=== PATIENT | female | born 1970 | race Caucasian/White ===

== ENCOUNTER 2016-08-22 19:15 | Emergency (ER) | payer OTHER ==
[~2016-08-22] VITALS: Ht 170.2 cm; Wt 73.9 kg
[2016-08-22 22:08] LABS: PLATELET COUNT 189 x10^3mcL (130-400)
[2016-08-22 22:13] LABS: CALCIUM 9.1 mg/dL (8.5-10.1); CARBON DIOXIDE 27.3 mmol/L (21-32); CHLORIDE SERUM 101 mmol/L (98-107); CREATININE SERUM 0.7 mg/dL (0.6-1.0); GFR1 > 60 mL/min; GLUCOSE SERUM 133 mg/dL (74-106); POTASSIUM SERUM 4.4 mmol/L (3.5-5.1); SODIUM SERUM 138 mmol/L (136-145)
[2016-08-22 22:15] LABS: RED CELL DISTRIBUTION WIDTH 15.2 % (11.5-14.5)
[2016-08-22 22:34] LABS: MONOCYTE 6 % (0-7); SEGMENTED NEUTROPHILS 45 % (37-75)
[2016-08-22 22:36] LABS: BAND NEUTROPHIL 7 % (0-10); BASOPHIL 0 % (0-2)
[2016-08-22 22:38] LABS: rbc morphology (normal/abnorm) ABNORMAL (NORMAL)
[2016-08-22 23:10] VITALS: BP 106/69
== END 2016-08-22 23:10 | disposition home or self-care (01) ==
LOC: ED 19:15
PROVIDERS: Emergency Medicine
DX: B34.9 Viral infection, unspecified (principal); N12 Tubulo-interstitial nephritis, not specified as acute or chronic; D69.1 Qualitative platelet defects; D72.819 Decreased white blood cell count, unspecified
CPT/HCPCS: J0696; J1100

== ENCOUNTER 2020-08-04 01:38 | Emergency (ER) | payer OTHER ==
[~2020-08-04] VITALS: Ht 162.6 cm; Wt 80.3 kg
[2020-08-04 01:49] VITALS: Ht 162.6 cm; Wt 80.3 kg
[2020-08-04 02:59] LABS: microscopic required? YES; urine erythrocyte TRACE (NEGATIVE)
[2020-08-04 03:35] LABS: BASOPHIL % 0.2 % (0.2-1.3); PLATELET COUNT 214 x10^3mcL (179-408)
[2020-08-04 04:20] LABS: CALCIUM 8.4 mg/dL (8.5-10.1); CARBON DIOXIDE 23.3 mmol/L (21-32); CHLORIDE SERUM 103 mmol/L (98-107); CREATININE SERUM 0.8 mg/dL (0.6-1.0); GFR1 > 60 mL/min; GLUCOSE SERUM 117 mg/dL (74-106); SODIUM SERUM 135 mmol/L (136-145)
[2020-08-04 04:25] LABS: ALKALINE PHOSPHATASE 87 U/L (46-116); ALT/SGPT 39 U/L (14-59); AST/SGOT 19 U/L (15-37); BILIRUBIN TOTAL 0.35 mg/dL (0.20-1.00); LIPASE 91 IU/L (73-393); TOTAL PROTEIN, SERUM 6.9 g/dL (6.4-8.2)
[2020-08-04 04:26] LABS: ALBUMIN 3.3 g/dL (3.4-5.0)
[2020-08-04] MEDS ORDERED: MORGIDOX 1X100100 MG PO ×2 (06:56)
[2020-08-04] MEDS ORDERED: HYDROCODONE BIT1 T51 PO (06:56)
[2020-08-04] MEDS ORDERED: FLAGYL500 MG PO (06:56)
[2020-08-04 07:21] VITALS: BP 125/74
[2020-08-04] MEDS ORDERED: EXCEDRIN EXTRA1 EACH PO (19:21)
== END 2020-08-04 07:21 | disposition home or self-care (01) ==
LOC: ED 01:38
PROVIDERS: Emergency Medicine
CPT/HCPCS: J0696; J1885; J2270; Q9967

== ENCOUNTER 2020-08-04 12:36 | Inpatient (IN) | payer OTHER ==
[~2020-08-04] VITALS: Ht 165.1 cm; Wt 80.3 kg
[~2020-08-04 12:36] MED LIST: FLAGYL500 MG PO; HYDROCODONE BIT1 T51 PO; MORGIDOX 1X100100 MG PO
--- NOTE | 2020-08-04 14:55 | NUR ---
PT BIB SELF C/C ABD PAIN X 2 DAYS STS WAS HERE THIS AM DID NOT FILL RX STS STILL IN PAIN SAW BY DR SOLANO
[2020-08-04 15:29] LABS: BASOPHIL % 0.2 % (0.2-1.3); PLATELET COUNT 253 x10^3mcL (179-408); RED CELL DISTRIBUTION WIDTH 14.4 % (12.3-17.7)
[2020-08-04 15:31] LABS: CALCIUM 9.6 mg/dL (8.5-10.1); CARBON DIOXIDE 25.8 mmol/L (21-32); CHLORIDE SERUM 99 mmol/L (98-107); CREATININE SERUM 0.7 mg/dL (0.6-1.0); GFR1 > 60 mL/min; GLUCOSE SERUM 97 mg/dL (74-106); POTASSIUM SERUM 3.3 mmol/L (3.5-5.1); SODIUM SERUM 135 mmol/L (136-145)
[2020-08-04 15:36] LABS: ALBUMIN 3.9 g/dL (3.4-5.0); ALKALINE PHOSPHATASE 100 U/L (46-116); ALT/SGPT 41 U/L (14-59); AST/SGOT 21 U/L (15-37); BILIRUBIN TOTAL 0.4 mg/dL (0.20-1.00); LIPASE 73 IU/L (73-393)
[2020-08-04 15:38] LABS: TOTAL PROTEIN, SERUM 8.4 g/dL (6.4-8.2)
[2020-08-04 16:17] LABS: microscopic required? NO
[2020-08-04 16:30] LABS: UA SPECIFIC GRAVITY <=1.005 (1.005-1.035); urine erythrocyte NEGATIVE (NEGATIVE)
--- NOTE | 2020-08-04 16:40 | NUR ---
MEDICATED FOR PAIN
--- NOTE | 2020-08-04 18:40 | NUR ---
STARTED ON IV ATB
--- NOTE | 2020-08-04 18:58 | NUR ---
PLEASE ENTER FULL NAMES OF OUTPATIENT INTERVIEWING CLERK/RN Patient data collected by (OUTPATIENT INTERVIEWING CLERK):DINAH HARRIS, OUTPATIENT INTERVIEWING CLERK Assessment reviewed and completed by (RN):MARCIAL DAWSON RN
--- NOTE | 2020-08-04 19:17 | NUR ---
RECEIVED REPROT FORM DINAH OPHTHALMIC TECHNICIAN, I WILL ASSUME CARE OF PT AT THIS TIME. PT IS IN BED AWAKE AND AAOX4, NAD NOTED. MEDICAL STUDENT OCTAVIO AT BEDSIDE FOR ASSESSMENT. PT ON CM, VSS. MEDICATED PT PER ORDERS, SEE EMAR FOR DETAILS. CALL LIGHT WITHIN REACH, WILL CONTINUE TO MONITOR PT.
[2020-08-04] MEDS ORDERED: EXCEDRIN EXTRA1 EACH PO (19:21)
[2020-08-04 19:43] LABS: CHOLESTEROL/HDL RATIO 2.9
--- NOTE | 2020-08-04 19:47 | NUR ---
REPORT GIVEN TO RAFI COOLEY AND MICKEY COOLEY WHO WILL ASSUME CARE OF PT AT THIS TIME.
--- NOTE | 2020-08-04 19:48 | NUR ---
PT AMBULATED TO AND FROM RESTROOM WITH STEADY GAIT.
--- NOTE | 2020-08-04 22:19 | NUR ---
REPORT GIVEN TO YASIR DECKER TO ASSUME CARE OF PT.
--- NOTE | 2020-08-04 22:30 | NUR ---
PT BROUGHT UP FROM ED. PT A&OX4, RESTING IN BED. ABLE TO AMBULATE, BRP. BREATHING E/U ON ROOM AIR. NO PAIN AT THIS TIME. PT IV FLUIDS INFUSING WELL. PT WAS GIVEN PM MEDS AND SNACKS. PT HAS NO CONCERNS AT THIS TIME. CALL LIGHT IN REACH, WILL CONTINUE TO MONITOR.
--- NOTE | 2020-08-04 22:32 | NUR ---
PT TRANSFERRED TO MED/SURG 234B VIA WHEELCHAIR. PT A&OX4,NO ACUTE DSITRESS NOTED, RESP EVEN AND UNLABORED, TRANSFERRED WITHOUT INCIDENCE.
[2020-08-04 22:46] VITALS: BP 127/60
--- NOTE | 2020-08-05 03:11 | NUR ---
PT IN BED SLEEPING, PT STABLE AT THIS TIME. CALL LIGHT IN REACH WILL CONTINUE TO MONITOR. IVF INFUSING WELL.
[2020-08-05 05:31] VITALS: BP 123/75
[2020-08-05 06:27] LABS: CALCIUM 8.5 mg/dL (8.5-10.1); CARBON DIOXIDE 22.2 mmol/L (21-32); CHLORIDE SERUM 104 mmol/L (98-107); CREATININE SERUM 0.7 mg/dL (0.6-1.0); GFR1 > 60 mL/min; GLUCOSE SERUM 98 mg/dL (74-106); MAGNESIUM 1.8 mg/dL (1.8-2.4); PHOSPHOROUS 3.1 mg/dL (2.5-4.9); POTASSIUM SERUM 3.6 mmol/L (3.5-5.1); SODIUM SERUM 138 mmol/L (136-145)
--- NOTE | 2020-08-05 06:37 | NUR ---
PT REMAINED STABLE THROUGHOUT THE NIGHT. PT IN BED RESTING, IVF INFUSING WELL. PT HAS NO CONCERNS AT THIS TIME. PAIN HAS BEEN CONTROLLED VIA EMAR. PT REMAINS ON ROOM AIR TOLERATING WELL. ALL NEEDS WERE MET DURING THIS SHIFT. CALL LIGHT IS IN REACH, WILL CONTINUE TO MONITOR. WILL ENDORSE ALL CARE TO AM RN.
[2020-08-05 07:01] LABS: BASOPHIL % 0.2 % (0.2-1.3); PLATELET COUNT 233 x10^3mcL (179-408); RED CELL DISTRIBUTION WIDTH 14.3 % (12.3-17.7)
--- NOTE | 2020-08-05 07:30 | NUR ---
RECEIVED REPORT FROM SWING SAW OPERATOR NURSE. PATIENT AAOX4, GETTING UP TO AMBULATE TO BATHROOM. 20G IV TO RAC WNL, PATIENT IS MEDSURG/NO TELE, ON RA AND STANDARD PRECAUTIONS. BED IN LOW POSITION, X2 SIDERAILS UP AND CALL LIGHT IN REACH. PATIENT DENIES PAIN OR DISCOMFORT AT THIS TIME.
[2020-08-05 08:23] VITALS: BP 123/75
--- NOTE | 2020-08-05 09:10 | NUR ---
PATIENT REPORTS PAIN 7/10 AT THIS TIME IN LLQ. PRN PO NORCO ADMINISTERED. WILL CONTINUE TO MONITOR
--- NOTE | 2020-08-05 10:10 | NUR ---
PATIENT REASESSED AND REPORTS PAIN IS NOW 2/10 AND TOLERABLE.
--- NOTE | 2020-08-05 11:25 | NUR ---
PATIENT REPORTS PAIN 7/10 IN LLQ AT THIS TIME. IVP MORPHINE 2MG ADMINISTERED PER PRN PAIN ORDERS.
[2020-08-05 11:36] VITALS: BP 135/81
--- NOTE | 2020-08-05 11:56 | NUR ---
PATIENT REASESSED FOR PAIN. PATIENT REPORTS PAIN IS NOW DECREASED TO 2/10 AND IS TOLERABLE AT THIS TIME.
--- NOTE | 2020-08-05 13:59 | NUR ---
PATIENT ASSESSED REGARDING PAIN. PATIENT RESTING WITH EYES CLOSED AT THIS TIME. WOKE PATIENT UP AND SHE REPORTED PAIN IS NOW 2/10 AND TOLERABLE. PATIENT CLOSED EYES AND WENT BACK TO SLEEP
--- NOTE | 2020-08-05 14:47 | NUR ---
PATIENT REPORTS HEADACHE 7/10 AND NAUSEA AT THIS TIME AND WOULD LIKE PAIN MEDICATION. MORPHINE ORDERS SHOW Q3HRS, MORPHINE AND ZOFRAN IVP ADMINISTERED PER ORDERS
[2020-08-05 16:54] VITALS: BP 130/79
--- NOTE | 2020-08-05 17:50 | NUR ---
PATIENT REPORTS HEADACHE PAIN 10/10 AT THIS TIME AND STATES THAT THE TYLENOL SHE RECEIVED EARLIER DID NOT HELP MUCH. PATIENT REQUESTING STRONGER MEDICATION. PRN NORCO PO ADMINISTERED. WILL CONTINUE TO MONITOR FOR DECREASE IN PAIN. AT THIS TIME PATIENT DENIES NAUSEA AND ABDOMINAL PAIN
--- NOTE | 2020-08-05 18:13 | NUR ---
PATIENT SITTING UP IN BED, EATING DINNER. REPORTS HEADACHE PAIN SLOWLY SUBSIDING AND IS NOW A 5/10. X2 SIDERAILS UP, HOB ELEVATED 90 DEGREES, BED IN LOW POSITION AND CALL LIGHT IN REACH
--- NOTE | 2020-08-05 18:47 | NUR ---
PATIENET ASSESSED FOR PAIN AGAIN AND NOW REPORTS HEADACHE 0/10. RESTING IN BED AND STATES SHE IS "TRYING TO GET SOME SLEEP." SIDE RAILS UP X2, BED IN LOW POSITION AND CALL LIGHT IN REACH. OVERHEAD LIGHT STILL ON AT THIS TIME.
--- NOTE | 2020-08-05 19:09 | NUR ---
ALL PATIENT QUESTIONS AND CONCERNS ADDRESSED. REPORT GIVEN TO TILE TRIMMER NURSE. ALL CARES ENDORSED
--- NOTE | 2020-08-05 19:20 | NUR ---
RECEIVED PATIENT FROM AM RN. PT AA&OX4, DENIES CHEST PAIN OR DISCOMFORT AT THIS TIME. DENIES SOB,DENIES N/V, ON MEDICAL SURGICAL STATUS MONITOR.PT DID C/O OF ABDOMINAL DISCOMFORT, BUT REFUSED FOR PAIN MEDICATION FOR THIS TIME. ENCOURAGED TO CHANGE POSITION TO BETTER COMFORT.IV SITE ON RIGHT AC INTACT ADN RUNNING WITH NS 100ML/HOUR. SAFETY PRECAUTION IN PLACE, CALL LIGHT WITHIN REACH. WILL CONTINUE TO MONITOR PT.
[2020-08-05 20:34] VITALS: BP 124/69
--- NOTE | 2020-08-06 01:39 | NUR ---
APPLIED SCD ON BILATERAL LOWER EXTREMITIES. EDUCATED PT HOW TO DISCONNECT THEM WHEN NEED TOAMBULATE TO RESTROOM. PT VERBALLY UNDERSTOOD.
[2020-08-06 05:16] VITALS: BP 113/66
--- NOTE | 2020-08-06 05:42 | NUR ---
PATIENT C/O ABDOMINAL PAIN WITH 12/12. MEDICATED WITH NORCO,1 TAB 7.5/325MG, PO ORDERED FOR PAIN. WILL REASSESS AND MONITOR PT.
[2020-08-06 06:23] LABS: BASOPHIL % 0.3 % (0.2-1.3); PLATELET COUNT 275 x10^3mcL (179-408); RED CELL DISTRIBUTION WIDTH 14.3 % (12.3-17.7)
[2020-08-06 06:36] LABS: CALCIUM 8.8 mg/dL (8.5-10.1); CARBON DIOXIDE 23.8 mmol/L (21-32); CHLORIDE SERUM 105 mmol/L (98-107); CREATININE SERUM 0.7 mg/dL (0.6-1.0); GFR1 > 60 mL/min; GLUCOSE SERUM 107 mg/dL (74-106); MAGNESIUM 1.8 mg/dL (1.8-2.4); PHOSPHOROUS 3.7 mg/dL (2.5-4.9); POTASSIUM SERUM 3.9 mmol/L (3.5-5.1); SODIUM SERUM 139 mmol/L (136-145)
--- NOTE | 2020-08-06 06:50 | NUR ---
PATIENT RESTED WELL DURING SHIFT. DENIES CHEST PAIN OR CHEST DISCOMFORT, DENIES SOB, DENIES N/V. NORCO WAS GIVEN AT 0540 FOR ABDOMINAL PAIN , BUT PT STATES SHE FEEL MUCH BETTER. PT CONDITION IS STABLE FOR THIS TIME. IV RUNNING WITH NS 100ML/HR, NO REDNESS OR SWELLING NOTED. SAFETY PRECAUTIONS IN PLACE. CALL LIGHT WITHIN REACH. WILL CONTINUE TO MONITOR PT UNTIL GIVE REPORT AND ENDORSE CARE TO AM RN.
--- NOTE | 2020-08-06 07:04 | NUR ---
RECEIVED PHOEN CALL FROM PT'S MEGHANN JERNIGAN. SHE WAS WORRIED ABOUT PATIENT [facility] AND WANTED TO KNOW WHEN THE OBGYN DOCTOR CAME TO CHECK ON HER. WILL FOLLOW IT UP WITH AM RN.
--- NOTE | 2020-08-06 07:10 | NUR ---
RECEIVED PT FROM NIGHT. PT IS AAOX4. PT MED-SURG STATUS. PT DENIES CHEST PAIN. PT IV TO RAC 20G. NS RUNNING @100 CC/HR. ALL COMFRT AND SAFETY MEASURES IN PLACE. BED IN LOW POSITION. 2 SIDE RAILS UP. CALL LIGHT WITH IN REACH. ALL QUESTIONS AND CONCERS ADDRESSED.
--- NOTE | 2020-08-06 07:43 | NUR ---
REPORT GAVE AND ENDORSED ALL CARE TO AM YASIR MATOS.
[2020-08-06 08:30] VITALS: BP 129/80
--- NOTE | 2020-08-06 10:43 | NUR ---
KEELY GAN MADE AWARE OF PT C/O CONSTIPATION AND H/A. KEELY GAN GAVE TELEPHONE READBACK ORDER FOR DULCOLAX SUPPOSATORY 10MG. TORADOL 15MG IV ONCE. ORDER CONFIRMED AND READBACK. ALL QUESTIONS AND CONCERNS ADDRESSED.
[2020-08-06 11:22] VITALS: BP 124/83
--- NOTE | 2020-08-06 15:30 | NUR ---
IN TO SEE PT. PT REMAINS STABLE AT THIS TIME. PT DENIES PAIN. PT STATING SHE HAD A SMALL BM. ALL QUESTIONS AND CONCERNS ADDRESSED. ALL COMFORT AND SAFETY MEASURES IN PLACE.
[2020-08-06 15:45] VITALS: BP 120/73
--- NOTE | 2020-08-06 19:10 | NUR ---
RECEIVED PATIENT FROM AM RN CARLO. PT AA&OX4, DENEIS CHEST PAIN OF CHEST DISCOMFORT, DENIES SOB OR RESPIRATORY DISTRESS. PT C/O N/V AND LITTLE ABDOMINAL DISCOMFORT AT THIS TIME. ABDOMEN SOFT, ROUND AND NONTENDER. IV SITE ON RIGHT AC INTACT AND RUNNING WITH NS 100ML/HR WELL, NO REDNESS OR SWELLING NOTED. CALL LIGHT WITHIN REACH, SAFETY PRECAUTIONS IN PLACE. WILL CONTINUE TO MONITOR PT.
--- NOTE | 2020-08-06 19:12 | NUR ---
REPORT GIVEN TO NIGHT RN. PT REMAINED STABLE THROUGHOUT MY SHIFT. ALL QUESTIONS AND CONCERNS ADDRESSED. ALL NEEDS MET AT THIS TIME.
--- NOTE | 2020-08-06 20:00 | NUR ---
WAS AT BEDSIDE TALKING TO PATIENT REGARDING THE PATIENT CURRENT CONCERNS. DR. JULIEN MADE AWARE OF PATIENT CONCERNS AND SUGGESTED THE PATIENT CAN DISCHARGE HOME WITH MEDICATIONS. MD ALSO SUGGESTED TO FOLLOW UP WITH HER MD FOR OUTSIDE TREATMENT. PHONE CALLED TO PATIENT'S DAUGHTER (DELON), IT WAS INTO VOICE MAIL. AND THE PATIENT PHONE HER AND TOLD HIM IN [place] WHAT THE MD JUST TOLD THE CARE PLAN.
--- NOTE | 2020-08-06 20:15 | NUR ---
ZOFRAM 4MG/2ML GIVEN IV ORDERED FOR N/V. WILL REASSESS AND MONITOR PT.
--- NOTE | 2020-08-06 20:48 | NUR ---
PATIENT C/O ABDOMINAL PAIN WITH NUMERICAL SCALE OF 6/10, REQUESTED FOR NORCO. MEDICATED WITH NORCO PO, 1TAB 7.5/325MG, ORDERED FOR PAIN. WILL REASSESS AND MONITOR PATIENT.
[2020-08-06 21:05] VITALS: BP 136/79
--- NOTE | 2020-08-07 03:47 | NUR ---
PATIENT C/O HEADACHE, ABDOMINAL PAIN WITH PAIN SCALE OF 7/10, REQUESTED FOR PAIN MEDICATION. NORCO MEDICATED PO,1TAB 7.5/325MG, ORDERED FOR PAIN. WILL CLOSELY REASSESS AND MONITOR PT.
--- NOTE | 2020-08-07 04:33 | NUR ---
PATIENT C/O IV SITE LEAKING, RECHECKED AND NOTED IV SITE IS DRY AND NO LEAKING. IV SITE INTACT AND RUNNING WELL WITH NS 100ML/HR, FLUSHED WELL WITH NS 10ML. NO LEAKING NOTED. VERIFIED WITH ANOTHER RN. PATIENT INSISTED THE IV SITE IS LEAKING. OFFERED TO START A NEW IV ON LEFT ARM OR HAND, PATINET REFUSED. EDUCATED THE PATIENT IT IS IMPORTANT FOR HER TO HAVE IV FLUIDS RUNNING FOR HYDRATION AND ANTIBIOTIC MEDICATION TREATMENT. PT VERBALLY UNDERSTOOD WITH MACEDONIAN AND TRANSLATED BY ANOTHER NURSE TREMAYNE. PATIENT STILL C/O HEADACHE AND ABDOMINAL PAIN AT THIS TIME. WLL REASSESS AND MONITOR PT.
[2020-08-07 05:24] VITALS: BP 117/81
[2020-08-07 06:06] LABS: CALCIUM 8.5 mg/dL (8.5-10.1); CARBON DIOXIDE 23.5 mmol/L (21-32); CHLORIDE SERUM 106 mmol/L (98-107); CREATININE SERUM 0.8 mg/dL (0.6-1.0); GFR1 > 60 mL/min; GLUCOSE SERUM 98 mg/dL (74-106); POTASSIUM SERUM 4.2 mmol/L (3.5-5.1); SODIUM SERUM 140 mmol/L (136-145)
[2020-08-07 06:19] LABS: BASOPHIL % 0.3 % (0.2-1.3); PLATELET COUNT 313 x10^3mcL (179-408)
--- NOTE | 2020-08-07 07:09 | NUR ---
REPORT GAVE TO AM RN. PT RESTED INTERVAL DURING SHIFT. PT C/O INTERMITTENT ABDOMINAL PAIN. MEDICATED WITH NORCO TWICE DURING SHIFT. PT WAS SLEEPING UNTIL NOW. PT WOKE UP CRY FROM THE PAIN. WILL GIVE MEDICATION FOR THE PAIN. IV SITE INTACT AND RUNNING WITH NS 100ML/HOUR. NO REDNESS OF SWELLING NOTED, NO INFILTRATING NOTED. CALL LIGHT WITHIN REACH. ALL CARE ENDORSED TO AM RN AND WILL CONTINUE TO CARE.
--- NOTE | 2020-08-07 07:13 | NUR ---
REC'D PT FROM COOK MANAGER. PATIENT SITTING UP CRYING WITH C/O PAIN. ADMINISTERED MORPHINE PER ORDER. WILL REASSESS FOR EFFECTIVENESS.
[2020-08-07 07:51] VITALS: BP 132/89
[2020-08-07] MEDS ORDERED: APAP/HYDROCODON1 T13 PO (10:13)
[2020-08-07] MEDS ORDERED: DOX100 PO (10:13)
[2020-08-07] MEDS ORDERED: FLA500 PO (10:13)
[2020-08-07 11:25] VITALS: BP 134/85
[2020-08-07 11:56] VITALS: BP 134/85
--- NOTE | 2020-08-07 13:00 | NUR ---
PT D/C TO HOME. IV REMOVED. DISCHARGE INSTRUCTIONS PROVIDED AND PT VERBALIZES UNDERSTANDING. PT IS AAOX4. D/C VIA WHEELCHAIR. I BROUGHT HER DOWN TO LOBBY AND HER AND DAUGHTER PICKED HER UP. PT IS AWARE TO FOLLOW UP WITH DOCTOR. RX GIVEN. PATIENT HAS ALL BELONGINGS.
== END 2020-08-07 12:59 | disposition home or self-care (01) | DRG 758 ==
LOC: ED 12:36 → MU 18:44
PROVIDERS: Emergency Medicine; ADMIT Internal Medicine; ATTEND Internal Medicine
DX: N73.9 Female pelvic inflammatory disease, unspecified (principal); R65.10 Systemic inflammatory response syndrome (SIRS) of non-infectious origin without acute organ dysfunction; E87.6 Hypokalemia; G43.909 Migraine, unspecified, not intractable, without status migrainosus; D72.829 Elevated white blood cell count, unspecified; N70.91 Salpingitis, unspecified; N83.202 Unspecified ovarian cyst, left side; N70.11 Chronic salpingitis; D25.9 Leiomyoma of uterus, unspecified; Z20.822 Contact with and (suspected) exposure to COVID-19
CPT/HCPCS: 87491; 87591; G0378; J0456; J0694; J0696; J1885; J2270; J2405; J3010; J3490; J7030; J7050; J7060

== ENCOUNTER 2020-08-11 16:48 | Emergency (ER) | payer OTHER ==
[~2020-08-11] VITALS: Ht 165.1 cm; Wt 76.7 kg
[~2020-08-11 16:48] MED LIST changes: +APAP/HYDROCODON1 T13 PO; +DOX100 PO; +EXCEDRIN EXTRA1 EACH PO; +FLA500 PO
[2020-08-11 17:05] VITALS: Ht 165.1 cm; Wt 76.7 kg
[2020-08-11 20:10] LABS: BASOPHIL % 0.8 % (0.2-1.3); RED CELL DISTRIBUTION WIDTH 14.4 % (12.3-17.7)
[2020-08-11 20:11] LABS: PLATELET COUNT 450 x10^3mcL (179-408)
[2020-08-11 20:23] LABS: CALCIUM 9.8 mg/dL (8.5-10.1); CARBON DIOXIDE 27.4 mmol/L (21-32); CHLORIDE SERUM 100 mmol/L (98-107); CREATININE SERUM 0.7 mg/dL (0.6-1.0); GFR1 > 60 mL/min; GLUCOSE SERUM 85 mg/dL (74-106); POTASSIUM SERUM 4.1 mmol/L (3.5-5.1); SODIUM SERUM 139 mmol/L (136-145)
[2020-08-11 20:28] LABS: ALBUMIN 3.7 g/dL (3.4-5.0); ALKALINE PHOSPHATASE 158 U/L (46-116); ALT/SGPT 46 U/L (14-59); AST/SGOT 24 U/L (15-37); BILIRUBIN TOTAL 0.3 mg/dL (0.20-1.00); LIPASE 211 IU/L (73-393)
[2020-08-11 20:35] LABS: TOTAL PROTEIN, SERUM 8.8 g/dL (6.4-8.2)
[2020-08-11 22:56] VITALS: BP 122/77
== END 2020-08-11 22:56 | disposition home or self-care (01) ==
LOC: ED 16:48
DX: R10.2 Pelvic and perineal pain (principal); G43.909 Migraine, unspecified, not intractable, without status migrainosus; Z98.890 Other specified postprocedural states